=== PATIENT | female | born 1965 | race Hispanic/Latino ===

== ENCOUNTER → 2019-01-20 | Outpatient (CLI) | payer BC | END | disposition home or self-care (01) | LOC: RAH 14:49 | PROVIDERS: ATTEND Internal Medicine | DX: N83.201 Unspecified ovarian cyst, right side (principal); R10.30 Lower abdominal pain, unspecified | CPT/HCPCS: 76856 ==

== ENCOUNTER → 2019-03-22 | Outpatient (CLI) | payer BC | END | disposition home or self-care (01) | LOC: OIH 08:33 | PROVIDERS: ATTEND Internal Medicine | DX: M47.815 Spondylosis without myelopathy or radiculopathy, thoracolumbar region (principal); Z90.49 Acquired absence of other specified parts of digestive tract | CPT/HCPCS: 71046 ==

== ENCOUNTER 2019-08-17 06:59 | Day surgery (SDC) | payer BC ==
[2019-08-15 14:34] VITALS: BP 138/69
[2019-08-15 14:35] LABS: BASOPHILS % (AUTO) 0.5 % (0.0-5.0); EOSINOPHILS % (AUTO) 1.3 % (0.0-8.0); HEMATOCRIT 42.8 % (36-48); LYMPHOCYTES % (AUTO) 26.3 % (21.0-51.0); MEAN CORPUSCULAR HGB CONC 34.1 g/dL (32.0-36.0); MONOCYTES % (AUTO) 7.1 % (3.0-13.0); NEUTROPHILS % (AUTO) 64.8 % (40.0-77.0); PLATELET COUNT (AUTO) 226 K/uL (130-400); RED BLOOD CELL COUNT(AUTO) 4.55 MIL/uL (4.00-5.50); RED CELL DISTRIBUTION WIDTH 13.2 % (11.0-15.5); WHITE BLOOD COUNT (AUTO) 5.2 K/uL (4.8-10.8)
[~2019-08-17] VITALS: Ht 158.8 cm; Wt 76.1 kg
[2019-08-17] VITALS (13 sets, daily range): BP systolic 110–134; BP diastolic 55–76
[2019-08-17] MEDS: CEFAZOLIN SODIUM 1 GM VIAL IVP SCH ×2 (06:00→08:45)
[~2019-08-17 06:59] MED LIST: LOSA100T58 PO
[2019-08-17] MEDS: CALDOLOR 800MG+NS 250ML 250 ML IV SCH ×2 (07:52→09:00)
[2019-08-17] MEDS: LACTATED RINGERS 1000ML 1,000 ML IV SCH ×2 (07:52→09:59)
[2019-08-17] MEDS ORDERED: BUPIVACAINE/PF 0.25% 30ML VIAL IJ ONE (07:59)
[2019-08-17] MEDS ORDERED: DEXAMETHASONE SOD PHOSPHATE 10MG/ML 1ML VIAL ONE (08:03)
[2019-08-17] MEDS ORDERED: LIDOCAINE PF 2% 5ML ABBOJECT ONE ×2 (08:03→08:05)
[2019-08-17] MEDS ORDERED: GLYCOPYRROLATE 1 MG/5 ML SYRINGE ONE (08:04)
[2019-08-17] MEDS ORDERED: ONDANSETRON HCL 4 MG/2 ML VIAL ONE ×2 (08:04→10:16)
[2019-08-17] MEDS ORDERED: SUCCINYLCHOLINE 200MG/10ML SYR ONE ×2 (08:04→08:05)
[2019-08-17] MEDS ORDERED: MIDAZOLAM HCL 1 MG/ML 2ML VIAL ONE (08:04)
[2019-08-17] MEDS ORDERED: ROCURONIUM 10MG/1ML SYR 10 MG/ML ML ONE (08:04)
[2019-08-17] MEDS ORDERED: PROPOFOL 10 MG/ML 20ML VIAL IV ONE (08:04)
[2019-08-17] MEDS ORDERED: NEOSTIGMINE 5MG/5ML SYR IV ONE (08:04)
[2019-08-17] MEDS ORDERED: FENTANYL CITRATE PF 50 MCG/1 ML 2ML VIAL ONE (08:05)
[2019-08-17] MEDS ORDERED: MEPERIDINE-PF 25 MG/ML SYG ONE ×2 (10:14→10:27)
[2019-08-17] MEDS ORDERED: METOCLOPRAMIDE 10 MG/2 ML VIAL ONE (10:23)
--- NOTE | 2019-08-17 10:55 | NUR ---
post op Received patient from [facility], s/p laparascopy hysteroscopy . cinthia pad in place with small bleeding noted. patient awake and alert, no distress noted. pt denied any pain or discomforts. plan of care discuss with patient / spouse. call light within reach.
--- NOTE | 2019-08-17 11:30 | NUR ---
dc pt dc home via [facility], no distress noted. pt denied any pain or discomforts. pt accompanied by spouse . dc instructions reinforced at this time, to f/u with dr. jaeger, to continue home meds. instructed on new med regimen and possible side effect. pt /spouse verbalized understanding
== END 2019-08-17 11:30 | disposition home or self-care (01) ==
LOC: DAH 06:59
DX: N95.0 Postmenopausal bleeding (principal); N84.0 Polyp of corpus uteri; N84.1 Polyp of cervix uteri; E11.9 Type 2 diabetes mellitus without complications; I10 Essential (primary) hypertension; K21.9 Gastro-esophageal reflux disease without esophagitis; Z90.49 Acquired absence of other specified parts of digestive tract; Z98.890 Other specified postprocedural states; Z79.899 Other long term (current) drug therapy; Z88.1 Allergy status to other antibiotic agents; Z83.3 Family history of diabetes mellitus; Z82.49 Family history of ischemic heart disease and other diseases of the circulatory system
CPT/HCPCS: 36415; 49320; 58558; 85025; 86850; 86900; 86901; 88305; 96365; A4215 ×2; A4221; A4222; A4223; A4351; A4663; A4930 ×2; C1769 ×2; G0168; J0330 ×2; J0690; J1100; J1741; J2001 ×2; J2175 ×2; J2250; J2405 ×2; J2704; J2710; J2765; J3010; J3490 ×2; J7030; J7120

== ENCOUNTER 2019-08-17 21:07 | Emergency (ER) | payer BC ==
[2019-08-17] MEDS ORDERED: ASPIRIN 325 MG TABLET ONE (21:33)
[2019-08-17 21:41] LABS: BASOPHILS % (AUTO) 0.6 % (0.0-5.0); EOSINOPHILS % (AUTO) 1.2 % (0.0-8.0); LYMPHOCYTES % (AUTO) 15.4 % (21.0-51.0); MEAN CORPUSCULAR HGB CONC 33.9 g/dL (32.0-36.0); MEAN CORPUSCULAR VOLUME 94.2 fL (79-99); MONOCYTES % (AUTO) 7.2 % (3.0-13.0); NEUTROPHILS % (AUTO) 75.6 % (40.0-77.0); PLATELET COUNT (AUTO) 196 K/uL (130-400); RED BLOOD CELL COUNT(AUTO) 4.35 MIL/uL (4.00-5.50); RED CELL DISTRIBUTION WIDTH 13.3 % (11.0-15.5); WHITE BLOOD COUNT (AUTO) 8.2 K/uL (4.8-10.8)
[2019-08-17 21:53] LABS: CREATININE 0.7 mg/dL (0.5-1.5); POTASSIUM 4.3 mmol/L (3.5-5.1)
[2019-08-17 21:54] LABS: INR 0.95 (0.85-1.15); PARTIAL THROMBOPLASTIN TIME 25.9 SEC (26.3-35.5)
[2019-08-17 21:57] LABS: ALBUMIN 3.4 g/dL (3.5-5.0); BILIRUBIN,TOTAL 0.3 mg/dL (0.2-1.0); TOTAL PROTEIN, SERUM 7.1 g/dL (6.0-8.3)
[2019-08-17] MEDS ORDERED: ONDANSETRON HCL 4 MG/2 ML VIAL ONE (22:45)
[2019-08-17] MEDS ORDERED: MORPHINE SULFATE 4 MG/1ML SYG ONE (22:45)
[2019-08-17] MEDS ORDERED: SODIUM CHLORIDE 0.9% 1000ML 1,000 ML IV ONE (22:46)
== END 2019-08-17 23:38 ==
LOC: EDH 21:07
DX: R07.89 Other chest pain (principal); I10 Essential (primary) hypertension; Z90.49 Acquired absence of other specified parts of digestive tract; Z87.891 Personal history of nicotine dependence; Z88.1 Allergy status to other antibiotic agents
CPT/HCPCS: 36415; 71045; 80053; 82550; 83690; 84484; 85025; 85610; 85730; 93005; 99285; J2270; J2405; J7030